=== PATIENT | female | born 1980 | race Two or more races ===

== ENCOUNTER → 2020-01-09 | Outpatient (CLI) | payer MEDICAID ==
[~2020-01-09] VITALS: Ht 170.2 cm; Wt 63.5 kg
[~2020-01-09] MED LIST: DESCOVY PO
--- NOTE | 2020-01-09 10:30 | Consultation ---
DATE OF CONSULTATION: 01/09/2020 CONSULTING PHYSICIAN: Juan Antonio Garcia M.D. CHIEF COMPLAINT: GERD. HISTORY OF PRESENT ILLNESS: This is a 39-year-old patient, who was born male, but now she is going to sex changed to become a female, who has been having severe acid reflux disease, has been taking omeprazole without much of improvement, was referred to us for endoscopy. PAST MEDICAL HISTORY: 1. Anxiety. 2. Depression. 3. Back pain. 4. GERD. 5. History of alcoholic pancreatitis. 6. History of anal fissures. PAST SURGICAL HISTORY: Breast augmentation and cosmetic nose surgery. MEDICATIONS: See the medication reconciliation list. FAMILY HISTORY: No family history of GI malignancies. SOCIAL HISTORY: The patient drinks occasionally. She is a former smoker. Denies any IV drug abuse. ALLERGIES: No known drug allergies. REVIEW OF SYSTEMS: Positive for abdominal pain, GERD, nausea. PHYSICAL EXAMINATION: VITAL SIGNS: Temperature 97.8, blood pressure 91/57, pulse 63, respirations 20. HEENT: Normocephalic and atraumatic. Sclerae anicteric. NECK: Supple. No evidence of obvious lymphadenopathy. CARDIOVASCULAR: Regular rate and rhythm. Plus S1-S2. LUNGS: Clear to auscultation bilaterally. ABDOMEN: Positive bowel sounds. Soft and nontender. No rebound. No guarding. No peritoneal sign. EXTREMITIES: No cyanosis. No clubbing. No edema. ASSESSMENT AND PLAN: A 39-year-old patient with chronic GERD symptoms not responding to PPI, who need endoscopy. Procedure was explained to the patient. Risks and benefits were explained to her. She agreed. We will plan to schedule her when authorization is obtained. Juan Antonio Garcia M.D. DR: STEFANIA JOB#: [id number] CC:
[2020-01-09 14:27] VITALS: BP 91/57
== END | disposition home or self-care (01) ==
LOC: PAN 09:02
DX: K21.9 Gastro-esophageal reflux disease without esophagitis (principal); F41.9 Anxiety disorder, unspecified; F32.9 Major depressive disorder, single episode, unspecified; Z87.891 Personal history of nicotine dependence; R10.9 Unspecified abdominal pain
CPT/HCPCS: G0463

== ENCOUNTER 2020-04-11 13:04 | Outpatient (CLI) | payer MEDICAID ==
--- NOTE | 2020-04-11 14:27 | General Progress Note ---
Assessment/Plan Assessment/Plan: HP gastritis treat RTC 3 months Subjective ROS Limited/Unobtainable: Yes Allergies: Coded Allergies: No Known Allergies (Unverified , 01/09/20) Objective General Appearance: alert EENT: normal ENT inspection Neck: supple Cardiovascular: normal rate Respiratory/Chest: lungs clear Abdomen: hypoactive bowel sounds Extremities: non-tender Juan Antonio Garcia MD Apr 11, 2020 14:27
== END 2020-04-11 15:04 | disposition home or self-care (01) ==
LOC: PAN 13:04
DX: K29.70 Gastritis, unspecified, without bleeding (principal); B96.81 Helicobacter pylori [H. pylori] as the cause of diseases classified elsewhere
CPT/HCPCS: 99212